=== PATIENT | male | born 1970 | race Two or more races ===

== ENCOUNTER → 2017-08-19 | Outpatient (REF) ==
--- NOTE | 2017-08-19 08:58 | RADIOLOGY IMAGING REPORT ---
FACILITY: [facility] [place] PATIENT NAME: Gilmar Cardenas : 1970 MR: [id number] V: [id number] EXAM DATE: ORDERING PHYSICIAN: PATTY WILLIS TECHNOLOGIST: Location: [facility] Patient: Gilmar Cardenas : 1970 Visit/Account:[id number] Date of Sevice: 08/19/2017 ELBOW 3 VIEWS RIGHT Indication: Elbow pain. Prior injury. Comparison: None Available Findings: 3 views of the right elbow were obtained. No acute fracture or dislocation. No joint effusion. No oss eous or joint centered abnormality is seen. IMPRESSION: 1. No acute osseous abnormality of the right elbow. Report Dictated By: Kashif Borrego at 08/19/2017 8:51 AM Report E-Signed By: Kashif Borrego at 08/19/2017 8:54 AM [id number]
== END ==
LOC: RAD 08:15
PROVIDERS: ATTEND Orthopaedic Surgery Orthopaedic Surgery of the Spine
DX: R53.1 Weakness (principal)